=== PATIENT | female | born 1975 | race Hispanic/Latino ===

== ENCOUNTER 2018-07-20 19:41 | Emergency (ER) | payer OTHER ==
[2018-07-20] MEDS ORDERED: ACETAMINOPHEN EXTRA STRENGTH 500 MG TABLET ONE (21:00)
[2018-07-20] MEDS ORDERED: CYCLOBENZAPRINE HCL 10 MG TABLET ONE (21:01)
== END 2018-07-20 22:06 | disposition home or self-care (01) ==
LOC: EDH 19:41
DX: S16.1XXA Strain of muscle, fascia and tendon at neck level, initial encounter (principal); S80.01XA Contusion of right knee, initial encounter; S50.01XA Contusion of right elbow, initial encounter; R03.0 Elevated blood-pressure reading, without diagnosis of hypertension; E11.9 Type 2 diabetes mellitus without complications; W01.0XXA Fall on same level from slipping, tripping and stumbling without subsequent striking against object, initial encounter; Y93.01 Activity, walking, marching and hiking; Y92.89 Other specified places as the place of occurrence of the external cause; Y99.8 Other external cause status
CPT/HCPCS: 73562; 82948